=== PATIENT | male | born 1985 | race Caucasian/White ===

== ENCOUNTER 2017-10-21 07:32 | Day surgery (SDC) | payer OTHER ==
[2017-10-21 08:33] VITALS: BMI 38.2
[2017-10-21] MEDS ORDERED: LIDOCAINE HCL/PF 2% SDV 5ML VIAL ONE (09:16)
[2017-10-21] MEDS ORDERED: LIDOCAINE VISCOUS 2% ORAL/TOP 20 ML UNIT-DOSE CUP ONE (09:16)
[2017-10-21] MEDS ORDERED: PROPOFOL 20 ML ONE ×2 (09:16)
[2017-10-21 09:52] VITALS: TEMP 97
[2017-10-21 12:21] VITALS: BP 118/70; PULSE 67
--- NOTE | 2017-10-21 12:32 | PROC ---
Endoscopy Procedure Endoscopy procedure completed. Please see scanned procedure report.
--- NOTE | 2017-10-22 15:51 | PATH ---
Surgical Pathology Report Patient Name: SARAH HAQ [facility]. Rec. #: [id number] /Age/Gender: 1985 (Age: 32) / M Account: [id number] Location: [facility]-ENDOSCOPY Taken: 10/21/2017 Received: 10/21/2017 Reported: 10/22/2017 Physicians: Larry Wong M.D. Specimen(s) Received A: BX 2ND PORTION DUODENUM B: BX ANTRUM AND BODY Clinical History GERD Postoperative diagnosis: Gastric ulcer Final Diagnosis A. DUODENUM, SECOND PORTION, BIOPSY: DUODENAL MUCOSA WITH NO DIAGNOSTIC ABNORMALITIES. B. ANTRUM AND BODY, BIOPSY: GASTRIC MUCOSA WITH MILD CHRONIC GASTRITIS. IMMUNOSTAIN IS NEGATIVE FOR H. PYLORI ORGANISMS. Electronically Signed Cornelius Krishnan M.D. Gross Description A. Received in formalin, labeled "biopsy second portion of duodenum" are 2 boudreaux, irregular portions of soft tissue averaging 0.3 cm. in greatest dimension. The specimens are submitted in toto in one cassette. B. Received in formalin, labeled "biopsy antrum and body" are 2 boudreaux, irregular portions of soft tissue measuring 0.1 and 0.6 cm. in greatest dimension. The specimens are submitted in toto in one cassette. 10/21/2017 saudi10/21/2017
== END 2017-10-21 10:20 | disposition home or self-care (01) ==
LOC: JASU-ENDO 07:32
PROVIDERS: ATTEND Internal Medicine Gastroenterology
PROC: 0DB68ZX Excision of Stomach, Via Natural or Artificial Opening Endoscopic, Diagnostic (ICD-10-PCS; 2017-10-21)
PROC: 0DB98ZX Excision of Duodenum, Via Natural or Artificial Opening Endoscopic, Diagnostic (ICD-10-PCS; principal; 2017-10-21 09:00)
DX: K25.9 Gastric ulcer, unspecified as acute or chronic, without hemorrhage or perforation (principal)
CPT/HCPCS: 88305-TC; 88342-TC